=== PATIENT | male | born 1990 | race Caucasian/White ===

== ENCOUNTER 2017-07-04 19:41 | Emergency (ER) | payer SELFPAY ==
[2017-07-04 19:55] VITALS: BP 130/78
[2017-07-04] MEDS ORDERED: LIDOCAINE PATCH 5% TOP STA (20:15)
[2017-07-04] MEDS ORDERED: KETOROLAC 60 MG/2 ML VIAL IM STA (20:15)
--- NOTE | 2017-07-04 20:18 | ED Physician Documentation ---
PD HPI TRUNK INJURY - Stated complaint Stated Complaint: RIB INJ - Chief complaint Chief Complaint: General - History obtained from History obtained from: Patient, Friend - History of Present Illness Location: Left chest Type of injury: Fall Timing - onset: How many weeks ago (1) Timing - details: Gradual onset, Still present Quality: Pain, Aching, Throbbing Worsened by: Moving, Palpating Associated symtptoms: Discoloration Contributing factors: No: Anticoagulated Where injury occured: [place] Similar symptoms before: Has not had sx before Recently seen: Not recently seen - Additional information Additional information: Patient is a 27 year old male with no significant past medical history who is presenting to the emergency department for left sided rib pain. patient was playing softball when he dove and landed on his side with his arm underneath him about a week ago. Review of Systems Constitutional: denies: Fever, Chills, Myalgias Eyes: denies: Decreased vision Ears: reports: Reviewed and negative Nose: denies: Foreign Body Throat: denies: Sore throat Cardiac: denies: Palpitations, Calf pain Respiratory: denies: Cough, Wheezing GI: denies: Abdominal Pain, Nausea, Vomiting Skin: denies: Rash, Lesions, Abrasion (s) Musculoskeletal: denies: Back pain, Extremity pain Neurologic: denies: Generalized weakness, Focal weakness Psychiatric: reports: Reviewed and negative Endocrine: reports: Reviewed and negative Immunocompromised: denies: Immunocompromised PD PAST MEDICAL HISTORY - Past Surgical History Past Surgical History: Yes - Present Medications Home Medications: Ambulatory Orders Medication Instructions Recorded Confirmed Acetaminophen 500 mg PO PRN PRN 07/04/17 07/04/17 Ibuprofen 400 mg PO PRN PRN 07/04/17 07/04/17 Lidocaine [Lidoderm] 1 each TP DAILY #10 adh..patch 07/04/17 Omeprazole 20 mg PO PRN PRN 07/04/17 07/04/17 - Allergies Allergies/Adverse Reactions: Allergies Allergy/AdvReac Type Severity Reaction Status Date / Time No Known Drug Allergies Allergy Verified 07/04/17 19:54 - Social History Does the pt smoke?: Yes Smoking Status: Current every day smoker Does the pt drink ETOH?: Yes Does the pt have substance abuse?: No PD ED PE NORMAL - Vitals Vital signs reviewed: Yes - General General: Alert and oriented X 3, No acute distress - HEENT HEENT: Atraumatic, PERRL - Neck Neck: Supple, no meningeal sign - Cardiac Cardiac: RRR, No murmur - Abdomen Abdomen: Soft, Non distended - Derm Derm: Normal color, Warm and dry, No rash - Extremities Extremities: No deformity, Normal ROM s pain - Neuro Neuro: Alert and oriented X 3, No motor deficit, No sensory deficit, Normal speech - Psych Psych: Normal mood, Normal affect PD ED PE EXPANDED - Cardiac Cardiac: Chest wall TTP (tenderness to palpation to left chest, no ecchymosis) - Respiratory Respiratory: No: Stridor, Gasping, Decreased breath sounds, Absent Breath Sounds Results - Vitals Vitals: Vital Signs - 24 hr 07/04/17 19:51 Temperature 38.1 C H Heart Rate 87 Respiratory 12 Rate Blood Pressure 130/78 O2 Saturation 97 Oxygen O2 Source Room air - Rads (name of study) chest x-ray Radiology: Final report received (no intrathoracic findings) PD MEDICAL DECISION MAKING - ED course Complexity details: reviewed old records, reviewed results, re-evaluated patient , considered differential, d/w patient, d/w family ED course: Patient was seen and examined at bedside. patient was treated with toradol and lidoderm and sent for imaging. when patient returned the results were reviewed. there was no fracture or dislocation. patient required no further work up and was stable for discharge with outpatient follow up. Departure - Departure Disposition: 01 Home, Self Care Clinical Impression: Contusion of rib on left side Condition: Good Instructions: ED Contusion Chest Wall Follow-Up: primary,care provider [Other] - As Needed Prescriptions: Lidocaine [Lidoderm] 1 each TP DAILY #10 adh..patch Comments: Your chest x-ray was within normal limits indicating that there is no fracture, just rib contusions. You should take motrin or tylenol as needed for pain and you can apply the topical lidoderm patches. You should make sure you take deep breaths whenever you think about it. these contusions can take weeks to heal. you should follow up with your pmd if your symptoms persist for more than 4 weeks. You may return to the emergency department for fevers, chills, nausea and vomiting. Discharge Date/Time: 07/04/17 21:15
[2017-07-04] MEDS ORDERED: KETOROLAC 60 MG/2 ML VIAL ONE (20:21)
[2017-07-04] MEDS ORDERED: LIDOCAINE PATCH 5% TOP ONE (20:21)
--- NOTE | 2017-07-04 21:01 | XRAY Preliminary Report ---
Exam: XR Chest 2 View PA/LAT IMPRESSION: No acute intrathoracic plain film abnormality. [facility] SITE ID: [id number]
--- NOTE | 2017-07-04 21:03 | XRAY Report ---
EXAM: CHEST RADIOGRAPHY EXAM DATE: 07/04/2017 08:36 PM. CLINICAL HISTORY: Chest pain fever after falling. COMPARISON: None. TECHNIQUE: 2 views. FINDINGS: Lungs/Pleura: No focal opacities evident. No pleural effusion. No pneumothorax. Normal volumes. Mediastinum: Heart and mediastinal contours are unremarkable. Other: None. IMPRESSION: No acute intrathoracic plain film abnormality. [facility] Referring Provider Line: [phone] SITE ID: [id number]
== END 2017-07-04 21:15 | disposition home or self-care (01) ==
LOC: ED 19:41
DX: S20.212A Contusion of left front wall of thorax, initial encounter (principal); W22.09XA Striking against other stationary object, initial encounter; Y93.64 Activity, baseball; Y92.830 Public park as the place of occurrence of the external cause; F17.200 Nicotine dependence, unspecified, uncomplicated
CPT/HCPCS: 71020; 96372; 99283; A9270